=== PATIENT | male | born 1985 | race Caucasian/White ===

== ENCOUNTER 2021-08-04 09:56 | Emergency (ER) | payer OTHER ==
[2021-08-04 10:04] VITALS: BP 154/83
--- NOTE | 2021-08-04 10:13 | ED Physician Documentation ---
PD HPI OPHTHO - Stated complaint Stated Complaint: EXPOSED LT EYE TO CHEMICAL AT WORK - Chief complaint Chief Complaint: Heent - History obtained from History obtained from: Patient - Additional information Additional information: Petroleum-based hydraulic fluid got in his left eye at work just prior to arrival. It burned a lot but now feels back to normal. No visual deficit. He does not wear glasses or contacts. Review of Systems Constitutional: reports: Reviewed and negative Ears: reports: Reviewed and negative Nose: reports: Reviewed and negative Throat: reports: Reviewed and negative PD PAST MEDICAL HISTORY - Allergies Allergies/Adverse Reactions: Allergies Allergy/AdvReac Type Severity Reaction Status Date / Time zinc AdvReac Nausea Verified 08/04/21 10:04 PD ED PE NORMAL - Vitals Vital signs reviewed: Yes - General General: Alert and oriented X 3, No acute distress - HEENT HEENT: Other (Left eye has minimally injected conjunctive a, pH is 7, no fluorescein uptake. He already irrigated prior to arrival.) - Neck Neck: Supple, no meningeal sign, No bony TTP - Neuro Neuro: Alert and oriented X 3, Normal speech Results - Vitals Vitals: Vital Signs - 24 hr 08/04/21 10:01 Temperature 36.6 C Heart Rate 77 Respiratory 18 Rate Blood Pressure 154/83 H O2 Saturation 97 Oxygen O2 Source Room air Departure - Departure Disposition: 01 Home, Self Care Clinical Impression: Chemical exposure of eye Condition: Good Record reviewed to determine appropriate education?: Yes Instructions: ED Chemical Conjunctivitis
== END 2021-08-04 10:25 | disposition home or self-care (01) ==
LOC: ED 09:56
DX: Z77.098 Contact with and (suspected) exposure to other hazardous, chiefly nonmedicinal, chemicals (principal)
CPT/HCPCS: 99281; 99282